=== PATIENT | male | born 1950 | race Caucasian/White ===

== ENCOUNTER 2016-06-20 05:25 | Inpatient (IN) | payer BC, OTHER ==
[2016-05-28 11:16] VITALS: BMI 28.0
--- NOTE | 2016-05-28 11:45 | PAT Medication Instructions ---
Service Date May 28, 2016. Current Home Medication List Aspirin (Aspirin Ec), 81 MG PO QAM Diltiazem HCl (Diltiazem Cd), 120 MG PO QAM Fluocinonide (Fluocinonide), 1 APPLN TOP DAILY Lamotrigine (Lamictal), 200 MG PO BID Meloxicam (Mobic), 15 MG PO QAM Quetiapine Fumarate (Seroquel), 300 MG PO QPM Simvastatin (Zocor), 40 MG PO QPM Tamsulosin Hcl (Flomax), 0.4 MG PO HS Temazepam (Restoril), 30 MG PO HS PRN for Sleep Umeclidinium-Vilanterol (Anoro Ellipta 62.5-25 Mcg/INH), 2 PUFF INH QAM Medication Instructions For Your Scheduled Surgery - Hold the following medications the morning of surgery: Fluocinonide (Fluocinonide), 1 APPLN TOP DAILY Meloxicam (Mobic), 15 MG PO QAM (otherwise okay to continue per surgeon) - Take the following medications the morning of surgery with a sip of water OTHERWISE NOTHING TO EAT OR DRINK AFTER MIDNIGHT: Lamotrigine (Lamictal), 200 MG PO BID Aspirin (Aspirin Ec), 81 MG PO QAM Diltiazem HCl (Diltiazem Cd), 120 MG PO QAM Umeclidinium-Vilanterol (Anoro Ellipta 62.5-25 Mcg/INH), 2 PUFF INH QAM - Take the following medications as scheduled the night before surgery: Quetiapine Fumarate (Seroquel), 300 MG PO QPM Simvastatin (Zocor), 40 MG PO QPM Tamsulosin Hcl (Flomax), 0.4 MG PO HS Temazepam (Restoril), 30 MG PO HS PRN for Sleep Lamotrigine (Lamictal), 200 MG PO BID If you have any questions please call us at [phone] (Katia Estrada PA-C) or [phone] or [phone]
[2016-05-28 13:13] LABS: BASO % 0.4 %; BASO ABS # 0.02 K/uL (0-0.2); COMPLETE YES; EOS % 6.8 %; HEMATOCRIT 41.9 % (42-52); LYMPH % 35.3 %; LYMPH ABS # 1.66 K/uL (1.2-3.4); MEAN CELL VOLUME 91.9 fL (80-100); MEAN CORPUSCULAR HEMOGLOBIN 31.1 pg (25-34); MEAN CORPUSCULAR HGB CONC 33.9 g/dl (32-36); MEAN PLATELET VOLUME 10.5 fL (7.4-10.4); MONO % 8.1 %; NEUT % 49.4 %; PLATELET COUNT 215 K/uL (130-400); RED BLOOD COUNT 4.56 M/uL (4.7-6.1)
[2016-05-28 13:28] LABS: ESTIMATED AVERAGE GLUCOSE 120 mg/dl; HA1C FLAG Normal (Normal); INR 0.9 (0.9-1.1)
[2016-05-28 13:40] LABS: BUN/CREATININE RATIO 21.6 (10-20); CALCIUM 8.6 mg/dl (8.5-10.1); CREATININE 1.1 mg/dl (0.60-1.40); POTASSIUM 4.2 mmol/L (3.5-5.1)
--- NOTE | 2016-05-30 08:36 | History and Physical ---
History & Physical Date May 30, 2016. Chief Complaint Right knee pain History of Present Illness Chun is a pleasant 65-year-old male who presents for preoperative evaluation prior to a right knee replacement. Patient states that they have been having pain in this knee for many years now, which has gradually worsened, it has now gotten to the point it is affecting his daily activities including walking, standing, going up and down steps. Patient has tried and failed conservative measures including previous cortisone injection, viscosupplementation, bracing, physical therapy, and PO NSAIDs, as well as previous knee arthroscopy with no relief. At this point in time, patient has failed conservative measures and would like to proceed with a right knee replacement. Past Medical/Surgical History Medical Problems: (1) Bipolar disorder (2) Bronchitis (3) Pneumonia (4) SVT (supraventricular tachycardia) Surgical Problems: (1) H/O arthroscopic knee surgery (2) H/O arthroscopic knee surgery (3) History of arthroscopic surgery of shoulder (4) History of lung surgery Additional History Hepatic Disease: No Bleeding Tendencies: No Infectious Diseases: No Allergies Coded Allergies: Tetracycline (Verified Allergy, Unknown, GROIN TURNED BLACK, 05/28/16) Home Medications Scheduled Aspirin (Aspirin Ec), 81 MG PO QAM Diltiazem HCl (Diltiazem Cd), 120 MG PO QAM Fluocinonide (Fluocinonide), 1 APPLN TOP DAILY Lamotrigine (Lamictal), 200 MG PO BID Meloxicam (Mobic), 15 MG PO QAM Quetiapine Fumarate (Seroquel), 300 MG PO QPM Simvastatin (Zocor), 40 MG PO QPM Tamsulosin Hcl (Flomax), 0.4 MG PO HS Tobramycin/Dexamethasone 0.3% Oph (Tobradex 0.3% Oph), 1 DOSE OPB DAILY Umeclidinium-Vilanterol (Anoro Ellipta 62.5-25 Mcg/INH), 2 PUFF INH QAM Scheduled PRN Hypochlorous Acid (Avenova with Neutrox), 1 DOSE OPB DAILY PRN for PRN Temazepam (Restoril), 30 MG PO HS PRN for Sleep Physical Examination Skin: warm/dry, no rash Eyes: normal inspection, EOMI, sclerae normal ENT: normal ENT inspection, pharynx normal Head: normocephalic, atraumatic Neck: supple, no adenopathy, trachea midline Respiratory/Chest: lungs clear, normal breath sounds, no respiratory distress Cardiovascular: regular rate, rhythm, no edema, no murmur Abdomen / GI: normal bowel sounds, non tender Addiitonal Comments: RIGHT KNEE EXAM Ankle ROM R * Active ROM - Factors: normal, Description: active pain free range of motion. Passive ROM - Factors: normal, Description: passive pain free range of motion. Hip ROM R * Active ROM - Factors: normal, Description: active pain free range of motion. Passive ROM - Factors: normal, Description: passive pain free range of motion. Knee ROM R * Active ROM - Flexion: 120 degrees, Extension: 5 degrees, Factors: pain. Passive ROM - Factors: normal, Description: passive pain free range of motion. Strength LE Normal Strength Description - Normal lower extremity: Bilateral. Knee * Inspection - Gait: normal. Alignment - Right: varus, Clinical. Ecchymosis - Right: negative. Effusion - Right: negative. Skin - Right: surgical scars. Swelling - Right: mild. Flexibility - Right: normal. Maximum tenderness - Right: Medial Joint Line. Patella exam - Crepitation - Right: negative. Patella position - Right: neutral. Tilt - Right: equal. [facility]'s - medial - Right: Positive. Knee Normal Inspection - Atrophy - Right: Absent. Patella exam - Apprehension - Right: Negative. Q-angle - Right: Normal. Damian's - Right: Negative. Breezy' s - lateral - Right: Negative. Posterior drawer - Right: Negative. Anterior drawer - Right: Negative. Pivot shift - Right: Negative. Valgus stress - Right: Negative. Varus stress - Right: Negative. Extensor lag - Right: Normal. Neurovascular LE Normal Neurovascular examination including reflexes, sensation , and pulses is within normal limits. Right KNEE XRAY Xrays reviewed of the right knee showing findings consistent with degenerative joint disease including joint space narrowing, subchondral sclerosis and peripheral osteophyte formation. no acute bony pathology, overall varus alignment. Impression: degenerative joint disease of the right knee with no acute bony pathology noted. Diagnosis Right Knee DJD. Medical Problems: (1) Bipolar disorder (2) Bronchitis (3) Pneumonia (4) SVT (supraventricular tachycardia) Plan of Treatment Further care discussed with patient and at this point in time has failed conservative measures and would like to proceed with a right total knee replacement. Plan on discharge will be home with outpatient physical therapy. DVT prophalaxis with TEDs, SCDs and will also place on aspirin 81 mg p.o. b.i.d. for a month postop. Patient will have follow up appointment in our office two weeks post op for staple/suture removal and re-evaluation. Patient otherwise has no other questions or concerns.
[~2016-06-20] VITALS: Ht 188 cm; Wt 98.3 kg
[2016-06-20] VITALS (8 sets, daily range): BP systolic 111–146; BP diastolic 71–96; PULSE 83–102; TEMP 36.3–36.6; O2SAT 95–98; Ht 188 cm; Wt 98.3 kg
[~2016-06-20 05:25] MED LIST: ASPI81TA28 PO; CRDCD120 PO; FLUO0.0566 TOP; HYPO0.01 OPB; LAMO200T38 PO; MELO7.5T5 PO; QUET1TAB37 PO; SIMV40TA4 PO; TAMS0.4C59 PO; TEMA30CA4 PO; TOBRSUS OPB; UMEC1AER INH
[2016-06-20] MEDS ORDERED: CEFAZOLIN 2000 MG/60 ML D5W 60 ML IV SCH (06:00)
[2016-06-20] MEDS ORDERED: FAMOTIDINE 20 MG TAB PO SCH (06:00)
[2016-06-20] MEDS ORDERED: CeleBREX 200 MG CAP PO SCH (06:00)
[2016-06-20] MEDS ORDERED: LACTATED RINGER'S 1000ML 1,000 ML IV SCH (06:00)
[2016-06-20] MEDS ORDERED: LACTATED RINGER'S 1000ML 500 ML IV ONE (06:00)
[2016-06-20] MEDS ORDERED: ACETAMINOPHEN 500 MG TAB PO SCH (06:00)
[2016-06-20] MEDS ORDERED: ROPIVACAINE 5MG/ML 30 ML 150 MG, BUPIVACAINE/EPINEPHR 0.5% MPF 30 ML, KETOROLAC TROMETH... INFIL SCH ×7 (06:00)
[2016-06-20] MEDS ORDERED: DEXAMETHASONE 4 MG TAB PO SCH (06:00)
[2016-06-20] MEDS ORDERED: GABAPENTIN 300 MG CAP PO SCH (06:00)
[2016-06-20] MEDS ORDERED: METOCLOPRAMIDE HCL 10 MG TAB PO SCH (06:00)
[2016-06-20] MEDS ORDERED: LACTATED RINGER'S 1000ML IV SCH (06:00)
[2016-06-20] MEDS ORDERED: BUPIVACAINE 0.5 % 5 MG/1 ML PF 10ML VIAL ONE (06:25)
[2016-06-20] MEDS: TRANEXAMIC ACID INJ 1,000 MG in SODIUM CHLORIDE 0.9% 100ML 100 ML IV SCH ×2 (06:30→06:33)
[2016-06-20] MEDS ORDERED: ORTHO JOINT ANESTHETIC ONE (06:52)
[2016-06-20] MEDS ORDERED: MIDAZOLAM HCL 1 MG/ML 2ML VIAL ONE (06:54)
[2016-06-20] MEDS ORDERED: FENTANYL CITRATE INJ 50 MCG/1 ML 2 ML VIAL ONE (06:55)
--- NOTE | 2016-06-20 07:07 | History & Physical Bridge Note ---
H&P Re-Evaluation Bridge Note: I have examined the patient, reviewed the History & Physical and in the interval since the performance of the History & Physical I have noted the following changes of clinical significance: No changes noted
[2016-06-20] MEDS ORDERED: FENTANYL CITRATE INJ 50 MCG/1 ML 2 ML VIAL IV PRN (07:15)
[2016-06-20] MEDS ORDERED: ATROPINE SULFATE 0.1 MG/ML 5ML SYR IV PRN (07:15)
[2016-06-20] MEDS ORDERED: EpHEDrine SULFATE INJ 50 MG/ML AMP IV PRN (07:15)
[2016-06-20] MEDS ORDERED: ONDANSETRON INJ 2 MG/ML 2 ML VIAL IV PRN ×2 (07:15→09:00)
[2016-06-20] MEDS ORDERED: LIDOCAINE HCL 2% 2 ML VIAL (20MG/ML) ONE (07:43)
[2016-06-20] MEDS ORDERED: PROPOFOL IV EMULSION 10 MG/ML 20 ML VIAL IV ONE (07:43)
--- NOTE | 2016-06-20 08:18 | [facility] Post Operative Brief Note ---
Immediate Operative Summary Operative Date Jun 20, 2016. Pre-Operative Diagnosis Right Knee Degenerative Joint Disease Post-Operative Diagnosis Right Knee Degenerative Joint Disease Procedure(s) Performed Right Total Knee Arthroplasty Cemented maryann patel [address] Boris Unger Powdered Sugar Supervisor Surgeon(s) Sukhjinder Ta PA-C Estimated Blood Loss 5ml Findings severe djd rt knee Specimens A. Right Knee Bone and Tissue Complication(s) None Disposition Recovery Room / PACU
[2016-06-20] MEDS ORDERED: BACITRACIN 50000 UNIT VIAL IR ONE (08:23)
[2016-06-20] MEDS ORDERED: POVIDONE-IODINE OP SOLN 30 ML BTL TOP ONE (08:23)
--- NOTE | 2016-06-20 08:44 | OPERATIVE REPORT ---
DATE OF OPERATION: 06/20/2016 PREOPERATIVE DIAGNOSIS: Severe end-stage tricompartmental degenerative joint disease, right knee. POSTOPERATIVE DIAGNOSIS: Same. PROCEDURE: Right total knee arthroplasty utilizing Journey II Day \T\ Nephew patient matched block total knee arthroplasty size 8 femur, 7 tibia, 10 poly, 35 oval patella. SURGEON: Dr. Unger. MEDICAL OFFICE ADMINISTRATOR: Sukhjinder Ta PA-C who was necessary for prepping, draping, retraction, wound closure of deep fascia, subcutaneous and skin and was necessary for the case. ESTIMATED BLOOD LOSS: 5 mL. COMPLICATIONS: None. TOURNIQUET TIME: 45 minutes. HISTORY OF PRESENT ILLNESS: The patient presents as a very pleasant 65-year-old white male being seen and evaluated with complaints of ongoing pain attributed to his right knee. He has been nonresponsive to conservative therapy including physical therapy, anti-inflammatories, corticosteroid injections, viscosupplementations and presents after a thorough discussion regarding risks, complications of total joint arthroplasty for right total knee arthroplasty. OPERATION AND FINDINGS: PROCEDURE: The patient was properly prepped and draped in supine position for total knee arthroplasty after identifying the appropriate surgical site. An anterior midline incision was made through the subcutaneous tissues down to the region of the extensor mechanism. A medial parapatellar incision was subsequently made. Meticulous hemostasis was obtained and performed at all times. The patella having been subluxed lateralward, medial and lateral meniscal remnants were excised. The patellar cut was then initially made and was sized to the appropriate size. After subluxing the tibia forward the appropriate meniscal fragments having been removed the distal femur was then cut first utilizing a Day \T\ Nephew block. The distal femoral cuts and chamfer cuts were all made under direct visualization and the proximal tibial osteotomy cut was also made utilizing Day \T\ Nephew blocks and checked with an extramedullary guide. The appropriate trial components on the femur and tibia were placed. Appropriate trial spacers were used to check flexion and extension gaps. With flexion and extension gaps being equal, the components were then subsequently after thorough irrigation and debridement lavage components were then subsequently cemented in the following order: femur, tibia and patella. Exparel was used for intraoperative anesthesia, the medial parapatellar incision was closed utilizing #1 Vicryl, subQ was closed with 2-0 Vicryl, skin was closed with skin clips. A sterile compression dressing was placed. The patient was taken to recovery room in stable condition. Due to the complex nature of the procedure, the entire surgery was performed with the operational assistance of Sukhjinder Ta PA-C. The delinquent tax collector assistant, under direct supervision, was involved in the actual performance of all aspects of the surgical procedure including hemostasis, tissue retraction and incision, instrument management, patient positioning, and wound closure. I attest to the content of the Intraoperative Record and any orders documented therein. Any exceptio ns are noted below.
[2016-06-20] MEDS: PANTOprazole SOD 40 MG TAB PO SCH (09:00)
[2016-06-20] MEDS: OXYCODONE HCL 10 MG TABCR (OXYCONTIN) PO SCH ×2 (09:00→21:31)
[2016-06-20] MEDS ORDERED: KETOROLAC TROMETHAMINE 30 MG/ML VIAL IV. PRN (09:00)
[2016-06-20] MEDS: ASPIRIN 81 MG ECTAB PO SCH ×2 (09:00→21:26)
[2016-06-20] MEDS: FLUOCINONIDE 0.05% OINT 15 GM TUBE EXT SCH (09:00)
[2016-06-20] MEDS ORDERED: TEMAZEPAM 15 MG CAP PO PRN (09:00)
[2016-06-20] MEDS ORDERED: ALUMINUM/MAGNESIUM/SIMETH (MAALOX MAX) 30 ML UDC PO PRN (09:00)
[2016-06-20] MEDS: DILTIAZEM HCL 120 MG CAPCR PO SCH (09:00)
[2016-06-20] MEDS ORDERED: SOD PHOSPHATE/SOD BIPHOSPHATE ENEMA 132 ML BTL PR PRN (09:00)
[2016-06-20] MEDS: DOCUSATE SODIUM 100 MG CAP PO SCH ×2 (09:00→21:26)
[2016-06-20] MEDS ORDERED: BISACODYL 10 MG SUPP PR PRN (09:00)
[2016-06-20] MEDS ORDERED: MoRPHine SULFATE 2 MG/ML CARP IV PRN ×2 (09:00→11:15)
[2016-06-20] MEDS ORDERED: MAGNESIUM HYDROXIDE SUSP 30 ML UDC PO PRN (09:00)
[2016-06-20] MEDS ORDERED: TOBRAMYCIN/DEXAMETHASONE OPH SUSP 2.5 ML BTL OPB SCH (09:00)
[2016-06-20] MEDS: MULTIVITAMIN TAB PO SCH (09:00)
--- NOTE | 2016-06-20 10:10 | DIAGNOSTIC IMAGING REPORT ---
RIGHT KNEE 1 OR 2 VIEWS ROUTINE CLINICAL HISTORY: AP/LATERAL IN PACU RIGHT KNEE Right postoperative evaluation COMPARISON: None. DISCUSSION: Total right knee replacement. Good contact between prosthetic and underlying bone. Surgical drains are in position. Expected soft tissue postoperative change IMPRESSION: Anatomic alignment status post total right knee replacement Electronically signed by: Sukhjinder Rangel M.D. 06/20/2016 10:08 AM Dictated Date/Time: 06/20/2016 10:08 AM
--- NOTE | 2016-06-20 10:47 | Anesthesiology Progress Note ---
Anesthesia Post Op Note Date & Time Jun 20, 2016 at 10:46 Vital Signs Pain Intensity: 0 Vital Signs Past 12 Hours Date Time Temp Pulse Resp B/P Pulse Ox O2 Delivery O2 Flow Rate FiO2 06/20/16 10:05 78 23 119/81 98 Nasal Cannula 2 06/20/16 09:55 36.4 76 23 117/79 98 Nasal Cannula 2 06/20/16 09:45 78 23 118/78 98 Nasal Cannula 2 06/20/16 09:35 80 18 118/79 99 Nasal Cannula 2 06/20/16 09:25 77 21 118/77 99 Nasal Cannula 2 06/20/16 09:15 80 23 117/81 99 Mask 10 06/20/16 09:05 79 23 118/75 100 Mask 10 06/20/16 08:57 36.0 87 20 118/76 97 Mask 10 06/20/16 05:59 36.3 94 20 134/96 97 Room Air 06/20/16 05:59 97 Room Air Notes Mental Status: alert / awake / arousable, participated in evaluation Pt Amnestic to Procedure: Yes Nausea / Vomiting: adequately controlled Pain: adequately controlled Airway Patency, RR, SpO2: stable & adequate BP & HR: stable & adequate Hydration State: stable & adequate Neuraxial Anesthesia: was administered, sensory block is resolving Anesthetic Complications: no major complications apparent
[2016-06-20] MEDS ORDERED: MoRPHine SULFATE 10 MG/ML CARP/VIAL IV PRN (11:15)
[2016-06-20] MEDS ORDERED: MoRPHine SULFATE 4 MG/ML 1 ML CARP\\VIAL IV PRN (11:15)
[2016-06-20] MEDS: VILANTEROL SCH (11:31)
[2016-06-20] MEDS: UMECLIDINIUM SCH (11:31)
[2016-06-20] MEDS: D5W AND 1/2NSS + 20MEQ KCL 1,000 ML IV SCH ×2 (11:33→21:25)
[2016-06-20] MEDS: CEFAZOLIN IV 2,000 MG in DEXTROSE 5% 50ML 50 ML IV SCH ×3 (11:41→21:27)
[2016-06-20] MEDS ORDERED: EYE SCH (12:00)
[2016-06-20] MEDS ORDERED: [UNRECOGNIZED DRUG - OTHER] SCH (12:00)
[2016-06-20] MEDS ORDERED: INFLUENZA VIRUS QUAD VACCINE 0.5 ML SYR IM. ONE (13:00)
[2016-06-20] MEDS ORDERED: INFLUENZA ADMINISTRATION CHARGE ONE (13:00)
[2016-06-20] MEDS: ACETAMINOPHEN 500 MG TAB PO SCH ×2 (13:32→21:27)
[2016-06-20] MEDS: OXYCODONE HCL IR 5 MG TAB (IMMEDIATE RELEASE) PO PRN ×2 (15:25→19:57)
[2016-06-20] MEDS ORDERED: AVENOVA OP PRN (16:30)
[2016-06-20] MEDS: SENNA 8.6 MG TAB PO SCH (21:25)
[2016-06-20] MEDS: SIMVASTATIN 40 MG TAB PO SCH (21:25)
[2016-06-20] MEDS: TAMSULOSIN HCL 0.4 MG CAP PO SCH (21:26)
[2016-06-20] MEDS: TOBRAMYCIN/DEXAMETHASONE OPH SUSP 2.5 ML BTL OPB SCH (21:26)
[2016-06-20] MEDS: QUETIAPINE FUMARATE 300 MG TAB PO SCH (22:41)
[2016-06-21 03:31] VITALS: BP 124/76; PULSE 90; TEMP 36.4; O2SAT 97
[2016-06-21] MEDS: ACETAMINOPHEN 500 MG TAB PO SCH ×3 (06:04→21:41)
[2016-06-21] MEDS: OXYCODONE HCL IR 5 MG TAB (IMMEDIATE RELEASE) PO PRN ×3 (06:05→18:32)
[2016-06-21] MEDS: D5W AND 1/2NSS + 20MEQ KCL 1,000 ML IV SCH (06:36)
[2016-06-21 06:52] VITALS: BP 121/74; PULSE 93; TEMP 36.7; O2SAT 94
[2016-06-21 06:53] LABS: HEMATOCRIT 35.6 % (42-52); MEAN CELL VOLUME 90.8 fL (80-100); MEAN CORPUSCULAR HEMOGLOBIN 30.9 pg (25-34); MEAN PLATELET VOLUME 9.9 fL (7.4-10.4); PLATELET COUNT 205 K/uL (130-400); RED BLOOD COUNT 3.92 M/uL (4.7-6.1); WHITE BLOOD COUNT 10.36 K/uL (4.8-10.8)
--- NOTE | 2016-06-21 07:00 | Orthopedic Progress Note ---
Orthopedic Progress Note Date of Service Jun 21, 2016. Subjective Post OP Day: 1 (s/p Right TKA) Reports: feeling well, pain controlled w PO medications, Denies: SOB, calf pain , chest pain, complaints, light headedness, nausea / vomiting Objective calves soft nontender, N/V intact, capillary refill less than 2 sec., A&O x3, toes mobile, hemovac drainage (100cc/8 hours) weak with dorsiflexion, states improved since last evening Date Time Temp Pulse Resp B/P Pulse Ox O2 Delivery O2 Flow Rate FiO2 06/21/16 06:52 36.7 93 19 121/74 94 Room Air 06/21/16 03:31 36.4 90 17 124/76 97 Room Air 06/21/16 03:30 Room Air 06/20/16 23:08 36.4 88 18 146/83 96 Room Air 06/20/16 15:43 36.4 100 18 143/84 96 Nasal Cannula 2.0 06/20/16 15:20 Nasal Cannula 2.0 06/20/16 13:22 36.6 102 17 111/71 97 Nasal Cannula 2.0 06/20/16 12:34 36.4 99 19 133/80 97 Nasal Cannula 2.0 06/20/16 11:32 36.3 95 17 116/75 98 Nasal Cannula 2.0 06/20/16 11:00 36.3 87 17 122/77 98 Nasal Cannula 2.0 06/20/16 10:30 Nasal Cannula 2.0 95 06/20/16 10:30 36.5 83 14 126/82 95 Nasal Cannula 2.0 06/20/16 10:30 98 Nasal Cannula 2.0 06/20/16 10:05 78 23 119/81 98 Nasal Cannula 2 06/20/16 09:55 36.4 76 23 117/79 98 Nasal Cannula 2 06/20/16 09:45 78 23 118/78 98 Nasal Cannula 2 06/20/16 09:35 80 18 118/79 99 Nasal Cannula 2 06/20/16 09:25 77 21 118/77 99 Nasal Cannula 2 06/20/16 09:15 80 23 117/81 99 Mask 10 06/20/16 09:05 79 23 118/75 100 Mask 10 06/20/16 08:57 36.0 87 20 118/76 97 Mask 10 Laboratory Results 24 Hours: Test 06/21/16 06:30 Hematocrit 35.6 % Hemoglobin 12.1 g/dL Assessment & Plan Assessment: POD #1 s/p Right TKA -PT/OT -dvt proph with KENDALL/SCD/ASA -plan for d/c home with HHPT when stable -mild foot drop, states improving since last evening, able to partially resist dorsiflexion, will observe, likely from ortho joint mix. (1) Bipolar disorder (2) Bronchitis (3) Pneumonia (4) SVT (supraventricular tachycardia) Discharge Planning Discharge Planning: home with home health DVT Prophylaxis: TEDs, SCDs Therapy: Physical Therapy
[2016-06-21 07:05] LABS: PROTHROMBIN TIME (PATIENT) 10.4 SECONDS (9.0-12.0)
[2016-06-21] MEDS: VILANTEROL SCH ×3 (07:06→15:09)
[2016-06-21] MEDS: UMECLIDINIUM SCH ×3 (07:06→15:09)
--- NOTE | 2016-06-21 07:20 | Discharge Instructions ---
Discharge Instructions Admission Reason for Admission: Right Knee Osteoarthritis Discharge Discharge Diagnosis / Problem: s/p Right TKA Discharge Goals Goal(s): Decrease discomfort, Improve function, Increase independence Activity Recommendations Activity Limitations: as noted below Weightbearing Status: Right weightbearing (as tolerated) . Instructions / Follow-Up Instructions / Follow-Up ACTIVITY RECOMMENDATIONS: SELF CARE INSTRUCTIONS AFTER TOTAL KNEE REPLACEMENT A. You may need to continue a physical therapy program after discharge from the hospital. There are several options available to you. Your doctor will assist you in selecting the best one for you. 1. An out-patient facility 2 to 3 times a week for therapy or home therapy. 2. Continue working on all exercises taught to you in the hospital. Your goals should be to increase bending of your knee to 90 degrees and beyond and to fully straighten your knee. B. You may progress at your own pace from walking with a walker or crutches to a cane; then to no assistive devices. C. Make walking a part of your daily routine. Be up as much as comfortable with rest periods throughout the day. Rest with leg elevation is very important. Use the ice wrap frequently for the first 3-4 weeks. D. There are no restrictions on activities. You may ride in a car, shop, participate in light air defense artillery crewmember and all social activities. E. Wear the long elastic stockings (KENDALL hose) 20 hours a day for 2 weeks after surgery. They can be removed several times a day for laundering and for a bath. F. You may shower, no tub baths until cleared by your doctor. SPECIAL CARE INSTRUCTIONS: VERY IMPORTANT TO READ AND REVIEW A. There are a few signs you need to watch for after you are home. Call [facility] if you notice any of the followin. Increased severe knee pain. Some pain is expected especially when you exercise. 2. Increased swelling in your leg or knee; pain or swelling of the calf muscle in either lower leg. 3. Any fluid drainage from the incision. 4. Shortness of breath or chest pain. B. Please call [facility] at if you have any concerns or questions about your operation or recovery. The doctor or his nurse will return your call promptly. C. You must take antibiotics before dental work, bladder, bowel or other surgery. Your doctor will provide you with a permanent care to carry describing this precaution. IMPORTANT: * REMEMBER TO TAKE ASPIRIN, 81 MG, TWICE DAILY FOR 4 WEEKS UNLESS OTHERWISE DIRECTED. THIS IS YOUR BLOOD THINNER. * HIGH RISK PATIENTS MAY BE PRESCRIBED A STRONGER BLOOD THINNER. THIS WILL BE PROVIDED AT DISCHARGE. * CALL IF INCREASED PAIN, REDNESS, DRAINAGE OR FEVER GREATER THAT 101. * WEAR KENDALL HOSE 20 HOURS PER DAY FOR 2 WEEKS. * DERMABOND Prineo- This is a mesh tape dressing that is covered with glue. It should remain in place until the incision is properly healed, usually 10-14 days. This dressing is designed to naturally slough off. You may trim the excess mesh tape as it peels off. Incision may be briefly wet in a shower. Dry immediately by blotting with a clean, dry towel. Do not bath or swim until instructed by your doctor. Do not scratch, rub, or pick at the dressing. Do not apply any topical ointments or lotions until dressing is completely removed and/or instructed by your doctor. There may be a small piece of suture material at one end of your incision. Do not pull or trim this. If it is bothersome or catching on clothing, you may cover it with a band-aid. FOLLOW UP VISIT: If appointment is not already scheduled: Please call [facility] to make a follow-up appointment for 2 weeks after your surgery at . Current Hospital Diet Patient's current hospital diet: Regular Diet Discharge Diet Recommended Diet: Regular Diet Procedures Procedures Performed: Right Total Knee Arthroplasty Cemented wolf nephfranci patel 2 Pending Studies Studies pending at discharge: no Laboratory Results Hemoglobin A1c Test 05/28/16 11:57 Range/Units Estimated Average Glucose 120 mg/dl Hemoglobin A1c 5.8 H 4.5-5.6 % Medical Emergencies . Who to Call and When: Medical Emergencies: If at any time you feel your situation is an emergency, please call 911 immediately. . Non-Emergent Contact Non-Emergency issues call your: Primary Care Provider, Surgeon . "Provider Documentation" section prepared by Sukhjinder Ta. VTE Core Measure Inpt VTE Proph given/why not?: Other Anticoagulation (ASA 81mg po bid x 1 month ), T.E.D. Stockings, SCD's
[2016-06-21 07:21] LABS: BUN/CREATININE RATIO 19.7 (10-20); CALCIUM 7.8 mg/dl (8.5-10.1); POTASSIUM 3.9 mmol/L (3.5-5.1)
[2016-06-21] MEDS: FLUOCINONIDE 0.05% OINT 15 GM TUBE EXT SCH (07:58)
[2016-06-21] MEDS: DILTIAZEM HCL 120 MG CAPCR PO SCH (08:01)
[2016-06-21] MEDS: OXYCODONE HCL 10 MG TABCR (OXYCONTIN) PO SCH ×2 (08:01→21:01)
[2016-06-21] MEDS: DOCUSATE SODIUM 100 MG CAP PO SCH ×2 (08:02→21:00)
[2016-06-21] MEDS: ASPIRIN 81 MG ECTAB PO SCH ×2 (08:02→21:00)
[2016-06-21] MEDS: PANTOprazole SOD 40 MG TAB PO SCH (08:02)
[2016-06-21] MEDS: MULTIVITAMIN TAB PO SCH (08:02)
--- NOTE | 2016-06-21 09:56 | Anesthesiology Progress Note ---
Anesthesia Post Op Note Date & Time Jun 21, 2016 at 09:56 Vital Signs Pain Intensity: 5.0 Vital Signs Past 12 Hours Date Time Temp Pulse Resp B/P Pulse Ox O2 Delivery O2 Flow Rate FiO2 06/21/16 06:52 36.7 93 19 121/74 94 Room Air 06/21/16 03:31 36.4 90 17 124/76 97 Room Air 06/21/16 03:30 Room Air 06/20/16 23:08 36.4 88 18 146/83 96 Room Air Notes Mental Status: alert / awake / arousable, participated in evaluation Pt Amnestic to Procedure: Yes Nausea / Vomiting: adequately controlled Pain: adequately controlled Airway Patency, RR, SpO2: stable & adequate BP & HR: stable & adequate Hydration State: stable & adequate Neuraxial Anesthesia: sensory block resolved Anesthetic Complications: no major complications apparent
[2016-06-21 10:51] VITALS: BP 128/77; PULSE 80; TEMP 36.3; O2SAT 95
[2016-06-21 14:53] VITALS: BP 129/75; PULSE 84; TEMP 36.7; O2SAT 93
[2016-06-21] MEDS: SIMVASTATIN 40 MG TAB PO SCH (20:59)
[2016-06-21] MEDS: QUETIAPINE FUMARATE 300 MG TAB PO SCH (21:00)
[2016-06-21] MEDS: TAMSULOSIN HCL 0.4 MG CAP PO SCH (21:00)
[2016-06-21] MEDS: SENNA 8.6 MG TAB PO SCH (21:00)
[2016-06-21] MEDS: CeleBREX 200 MG CAP PO SCH (21:01)
[2016-06-21] MEDS: TOBRAMYCIN/DEXAMETHASONE OPH SUSP 2.5 ML BTL OPB SCH (21:02)
[2016-06-21 23:15] VITALS: BP 157/87; PULSE 92; TEMP 36.8; O2SAT 93
[2016-06-22] MEDS: OXYCODONE HCL IR 5 MG TAB (IMMEDIATE RELEASE) PO PRN ×3 (00:36→12:12)
[2016-06-22] MEDS: ACETAMINOPHEN 500 MG TAB PO SCH (05:36)
[2016-06-22 06:42] VITALS: BP 127/76; PULSE 94; TEMP 36.7; O2SAT 95
--- NOTE | 2016-06-22 07:01 | Orthopedic Progress Note ---
Orthopedic Progress Note Date of Service Jun 22, 2016. Subjective Post OP Day: 2 Reports: feeling well, pain controlled w PO medications, Denies: SOB, calf pain , chest pain, complaints, light headedness, nausea / vomiting Objective calves soft nontender, N/V intact, capillary refill less than 2 sec., incision C /D/I, A&O x3, toes mobile Date Time Temp Pulse Resp B/P Pulse Ox O2 Delivery O2 Flow Rate FiO2 06/22/16 06:42 36.7 94 16 127/76 95 Room Air 06/22/16 00:30 Room Air 06/21/16 23:15 36.8 92 18 157/87 93 Room Air 06/21/16 16:00 Room Air 06/21/16 14:53 36.7 84 16 129/75 93 Room Air 06/21/16 10:51 36.3 80 19 128/77 95 Room Air Assessment & Plan Assessment: POD #2 s/p Right TKA -PT/OT -dvt proph with KENDALL/SCD/ASA -plan for d/c home with HHPT when stable -mild foot drop, states improving since last evening, able to partially resist dorsiflexion, will observe, likely from ortho joint mix. -has resolved, was likely due to orthomix (1) Bipolar disorder (2) Bronchitis (3) Pneumonia (4) SVT (supraventricular tachycardia) Discharge Planning Discharge Planning: home with home health DVT Prophylaxis: TEDs, SCDs Therapy: Physical Therapy
[2016-06-22] MEDS: UMECLIDINIUM SCH ×2 (07:05)
[2016-06-22] MEDS: VILANTEROL SCH ×2 (07:05)
[2016-06-22] MEDS ORDERED: ACET-1138 PO (07:10)
[2016-06-22] MEDS ORDERED: RXC5 PO (07:10)
[2016-06-22] MEDS ORDERED: CLB200 PO (07:10)
[2016-06-22] MEDS ORDERED: OXYSR10 PO (07:10)
[2016-06-22] MEDS ORDERED: ONDA8TAB6 PO (07:10)
[2016-06-22] MEDS ORDERED: ASPEC81 PO (07:10)
--- NOTE | 2016-06-22 07:15 | Discharge Summary ---
Orthopedic Discharge Summary Admission Date/Reason Jun 20, 2016 at 07:00 Right Knee Osteoarthritis. Discharge Date/Disposition Jun 22, 2016 Home with services Diagnosis Principal Diagnosis: s/p Right TKA Secondary Diagnoses/Problems: (1) Bipolar disorder (2) Bronchitis (3) Pneumonia (4) SVT (supraventricular tachycardia) Procedure(s) Performed Right TKA Consultations NONE Medication Reconciliation New Medications: Ondansetron Hcl (Zofran) 8 Mg Tab 8 MG PO Q8 PRN for Nausea, #20 TAB Acetaminophen (Tylenol Extra Strength) 500 Mg Tab 1000 MG PO Q8H, #126 TAB Aspirin (Aspirin EC Low Dose) 81 Mg Ectab 81 MG PO BID for 30 Days Celecoxib (Celebrex) 200 Mg Cap 200 MG PO BID, #60 CAP Oxycodone HCl (Oxycodone HCl) 5 Mg Tab 5-10 MG PO Q4H PRN for Pain, #60 TAB Oxycodone HCl (Oxycontin) 10 Mg Tabcr 10 MG PO Q12, #20 Continued Medications: Diltiazem HCl (Diltiazem Cd) 120 Mg Capcr 120 MG PO QAM Fluocinonide (Fluocinonide) 0.05 % Noemí 1 APPLN TOP DAILY, ML 2 Refills Hypochlorous Acid (Avenova with Neutrox) 0.01 % Noemí 1 DOSE OPB DAILY PRN for PRN Lamotrigine (Lamictal) 200 Mg Tab 200 MG PO BID Quetiapine Fumarate (Seroquel) 300 Mg Tab 300 MG PO QPM, TAB Simvastatin (Zocor) 40 Mg Tab 40 MG PO QPM, TAB Tamsulosin Hcl (Flomax) 0.4 Mg Cap 0.4 MG PO HS, CAP Temazepam (Restoril) 30 Mg Cap 30 MG PO HS PRN for Sleep Tobramycin/Dexamethasone 0.3% Oph (Tobradex 0.3% Oph) Susp 1 DOSE OPB DAILY Umeclidinium-Vilanterol (Anoro Ellipta 62.5-25 Mcg/INH) 1 Aer Aer 2 PUFF INH QAM Discontinued Medications: Aspirin (Aspirin Ec) 81 Mg Tab 81 MG PO QAM Meloxicam (Mobic) 7.5 Mg Tab 15 MG PO QAM, TAB Admission Physical Exam As per Admitting History & Physical. Hospital Course Patient was a same day admission after undergoing a successful right TKA. he tolerated the procedure well. Post-operatively, his activity was progressed and well tolerated. Please refer to daily progress notes and PT notes for complete details. After exam on 06/22/16, patient felt to be stable for discharge home with home PT. Patient will f/u in the office in 2 weeks for further evaluation including x-rays and incision check, sooner if having any issues or concerns. Below are pertinent labs/studies during their hospital stay: Last Resulted CBC 06/21/16 06:30 Last Resulted BMP 06/21/16 06:30 Last Vital Signs Documentation Date Time Temp Pulse Resp B/P Pulse Ox O2 Delivery O2 Flow Rate FiO2 06/22/16 06:42 36.7 94 16 127/76 95 Room Air 06/20/16 15:43 2.0 06/20/16 10:30 95 Discharge Instructions ACTIVITY RECOMMENDATIONS: SELF CARE INSTRUCTIONS AFTER TOTAL KNEE REPLACEMENT A. You may need to continue a physical therapy program after discharge from the hospital. There are several options available to you. Your doctor will assist you in selecting the best one for you. 1. An out-patient facility 2 to 3 times a week for therapy or home therapy. 2. Continue working on all exercises taught to you in the hospital. Your goals should be to increase bending of your knee to 90 degrees and beyond and to fully straighten your knee. B. You may progress at your own pace from walking with a walker or crutches to a cane; then to no assistive devices. C. Make walking a part of your daily routine. Be up as much as comfortable with rest periods throughout the day. Rest with leg elevation is very important. Use the ice wrap frequently for the first 3-4 weeks. D. There are no restrictions on activities. You may ride in a car, shop, participate in hospice care sales consultant and all social activities. E. Wear the long elastic stockings (KENDALL hose) 20 hours a day for 2 weeks after surgery. They can be removed several times a day for laundering and for a bath. F. You may shower, no tub baths until cleared by your doctor. SPECIAL CARE INSTRUCTIONS: VERY IMPORTANT TO READ AND REVIEW A. There are a few signs you need to watch for after you are home. Call [facility] if you notice any of the followin. Increased severe knee pain. Some pain is expected especially when you exercise. 2. Increased swelling in your leg or knee; pain or swelling of the calf muscle in either lower leg. 3. Any fluid drainage from the incision. 4. Shortness of breath or chest pain. B. Please call [facility] at if you have any concerns or questions about your operation or recovery. The doctor or his nurse will return your call promptly. C. You must take antibiotics before dental work, bladder, bowel or other surgery. Your doctor will provide you with a permanent care to carry describing this precaution. IMPORTANT: * REMEMBER TO TAKE ASPIRIN, 81 MG, TWICE DAILY FOR 4 WEEKS UNLESS OTHERWISE DIRECTED. THIS IS YOUR BLOOD THINNER. * HIGH RISK PATIENTS MAY BE PRESCRIBED A STRONGER BLOOD THINNER. THIS WILL BE PROVIDED AT DISCHARGE. * CALL IF INCREASED PAIN, REDNESS, DRAINAGE OR FEVER GREATER THAT 101. * WEAR KENDALL HOSE 20 HOURS PER DAY FOR 2 WEEKS. * DERMABOND Prineo- This is a mesh tape dressing that is covered with glue. It should remain in place until the incision is properly healed, usually 10-14 days. This dressing is designed to naturally slough off. You may trim the excess mesh tape as it peels off. Incision may be briefly wet in a shower. Dry immediately by blotting with a clean, dry towel. Do not bath or swim until instructed by your doctor. Do not scratch, rub, or pick at the dressing. Do not apply any topical ointments or lotions until dressing is completely removed and/or instructed by your doctor. There may be a small piece of suture material at one end of your incision. Do not pull or trim this. If it is bothersome or catching on clothing, you may cover it with a band-aid. FOLLOW UP VISIT: If appointment is not already scheduled: Please call [facility] to make a follow-up appointment for 2 weeks after your surgery at .
[2016-06-22] MEDS: FLUOCINONIDE 0.05% OINT 15 GM TUBE EXT SCH (07:18)
[2016-06-22] MEDS: MULTIVITAMIN TAB PO SCH (07:19)
[2016-06-22] MEDS: DOCUSATE SODIUM 100 MG CAP PO SCH (07:20)
[2016-06-22] MEDS: ASPIRIN 81 MG ECTAB PO SCH (07:20)
[2016-06-22] MEDS: DILTIAZEM HCL 120 MG CAPCR PO SCH (07:20)
[2016-06-22] MEDS: CeleBREX 200 MG CAP PO SCH (07:20)
[2016-06-22] MEDS: PANTOprazole SOD 40 MG TAB PO SCH (07:20)
[2016-06-22] MEDS: OXYCODONE HCL 10 MG TABCR (OXYCONTIN) PO SCH (07:21)
[2016-06-22 08:05] VITALS: BP 98/72; PULSE 96; TEMP 36.8; O2SAT 92
[2016-06-22 09:16] VITALS: O2SAT 92
[2016-06-22 09:25] VITALS: BP 98/72; PULSE 96; TEMP 36.8; O2SAT 92
== END 2016-06-22 13:08 | disposition home health service (06) | DRG 470 ==
LOC: ENRESERVDT → ENRESERVTM → C.ACU 05:25 → C.3E 07:00
PROVIDERS: ADMIT Orthopaedic Surgery; ATTEND Orthopaedic Surgery
PROC: 0SRC0J9 Replacement of Right Knee Joint with Synthetic Substitute, Cemented, Open Approach (ICD-10-PCS; principal; 2016-06-20 07:15)
DX: M17.11 Unilateral primary osteoarthritis, right knee (principal); M96.89 Other intraoperative and postprocedural complications and disorders of the musculoskeletal system; M21.371 Foot drop, right foot; Y84.8 Other medical procedures as the cause of abnormal reaction of the patient, or of later complication, without mention of misadventure at the time of the procedure; Y92.234 Operating room of hospital as the place of occurrence of the external cause; F31.9 Bipolar disorder, unspecified; J44.9 Chronic obstructive pulmonary disease, unspecified; E78.5 Hyperlipidemia, unspecified; N40.0 Benign prostatic hyperplasia without lower urinary tract symptoms; Z87.891 Personal history of nicotine dependence; Z90.2 Acquired absence of lung [part of]; Z79.1 Long term (current) use of non-steroidal anti-inflammatories (NSAID); Z79.51 Long term (current) use of inhaled steroids; Z79.82 Long term (current) use of aspirin; Z79.899 Other long term (current) drug therapy

== ENCOUNTER → 2016-08-28 | Outpatient (CLI) | payer BC ==
[~2016-08-28] MED LIST changes: +ACET-1138 PO; +ASPEC81 PO; -ASPI81TA28 PO; +CLB200 PO; -CRDCD120 PO; +DILT120C50 PO; -MELO7.5T5 PO; +ONDA8TAB6 PO; +OXYSR10 PO; +RXC5 PO
[2016-08-28 15:32] LABS: ALT/SGPT 38 U/L (12-78); BLOOD UREA NITROGEN 22 mg/dl (7-18); CALCIUM 8.9 mg/dl (8.5-10.1); CARBON DIOXIDE 26 mmol/L (21-32); CHLORIDE 110 mmol/L (98-107); CHOLESTEROL 195 mg/dl (0-200); CREATININE 0.96 mg/dl (0.60-1.40); GLUCOSE 107 mg/dl (70-99); SODIUM 143 mmol/L (136-145)
[2016-08-28 15:35] LABS: CHOLESTEROL/HDL RATIO 2.4; HDL CHOLESTEROL 80 mg/dl; LDL CHOLESTEROL CALCULATED 99 mg/dl; TRIGLYCERIDES 81 mg/dl (0-150); VERY LOW DENSITY LIPOPROT CALC 16 mg/dl
[2016-08-29 06:14] LABS: ESTIMATED AVERAGE GLUCOSE 108 mg/dl; HA1C FLAG Normal (Normal)
== END | disposition home or self-care (01) ==
LOC: C.LAB1850 13:12
PROVIDERS: ATTEND Family Medicine
DX: J44.9 Chronic obstructive pulmonary disease, unspecified (principal); R73.03 Prediabetes

== ENCOUNTER → 2017-06-18 | Outpatient (CLI) | payer BC ==
[~2017-06-18] MED LIST changes: +DILT-202 PO; -DILT120C50 PO; -HYPO0.01 OPB; +LAMO200T35 PO; -LAMO200T38 PO; -ONDA8TAB6 PO; +[UNRECOGNIZED DRUG - CODE] OPB
[2017-06-18 09:45] LABS: HEMOGLOBIN A1C 5.7 % (4.5-5.6)
[2017-06-18 10:08] LABS: ALT/SGPT 37 U/L (12-78); BLOOD UREA NITROGEN 21 mg/dl (7-18); CALCIUM 8.4 mg/dl (8.5-10.1); CARBON DIOXIDE 26 mmol/L (21-32); CREATININE 1.08 mg/dl (0.60-1.40); GLUCOSE 98 mg/dl (70-99); POTASSIUM 3.9 mmol/L (3.5-5.1); SODIUM 137 mmol/L (136-145)
[2017-06-18 10:11] LABS: CHOLESTEROL 178 mg/dl (0-200); LDL CHOLESTEROL CALCULATED 84 mg/dl
== END | disposition home or self-care (01) ==
LOC: C.LAB1850 08:26
PROVIDERS: ATTEND Registered Nurse Psychiatric/Mental Health
DX: Z51.81 Encounter for therapeutic drug level monitoring (principal); E78.5 Hyperlipidemia, unspecified; I47.1 Supraventricular tachycardia; R73.03 Prediabetes

== ENCOUNTER → 2017-08-01 | Day surgery (SDC) | payer BC ==
[2017-07-29 15:26] VITALS: Ht 188 cm; Wt 95.5 kg
[~2017-08-01] VITALS: Ht 188 cm; Wt 95.5 kg
[~2017-08-01] MED LIST changes: -ACET-1138 PO; +ACET-1256 PO; -ASPEC81 PO; +ASPI81TA28 PO; +CLB/200 PO; -CLB200 PO; +COEN100C3 PO; +LIDOCAINE HCL 2% 2 ML VIAL (20MG/ML) ONE; -OXYSR10 PO; +PROPOFOL IV EMULSION 10 MG/ML 20 ML VIAL IV ONE; -RXC5 PO; +SODIUM CHLORIDE 0.9% 500ML 500 ML IV ONE; +TAMS0.4C38 PO; -TAMS0.4C59 PO; -TOBRSUS OPB; +VNTHFA/IN INH; -[UNRECOGNIZED DRUG - CODE] OPB
--- NOTE | 2017-08-01 12:43 | Endo History and Physical ---
History & Physical Date of Service: Aug 01, 2017. Chief Complaint: Screening Referring Physician: Codie Biggs History of Present Illness screening Past Medical History Cancer Past Surgical History Hx Cardiac Surgery: Yes (CARDIOVERSION) Hx Internal Defibrillator: No Hx Pacemaker: No Hx Abdominal Surgery: No Hx of Implantable Prosthesis: No Hx Post-Op Nausea and Vomiting: No Hx Cancer Surgery: Yes (BCC EXCISIONS) Hx Thoracic Surgery: Yes (LOWER RT LOBE SCAR TISSUE EXCISION) Hx Orthopedic: Yes (RT TKA, LT/RT KNEE SCOPE, LT/RT RCR) Hx Urinary Tract Surgery: No Family History None Social History Smoking Status: Former Smoker Hx Substance Use: No Hx Alcohol Use: Yes (~1 BEER/DAY) Allergies Coded Allergies: Tetracycline (Verified Allergy, Unknown, GROIN TURNED BLACK, 07/29/17) Current Medications Reported Home Medications Medications Dose Route/Sig Max Daily Dose Days Date Category Co Q-10 (Coenzyme Q10 (Ubidecarenone)) 100 Mg Cap 1 Cap PO DAILY 07/29/17 Reported Ventolin Hfa (Albuterol) 200 Puffs/94555 Mcg Aers 2-4 Puffs INH Q6H PRN 07/29/17 Reported Flomax (Tamsulosin Hcl) 0.4 Mg Cap 0.4 Mg PO HS 07/29/17 Reported CeleBREX (Celecoxib) 200 Mg Cap 200 Mg PO DAILY 07/29/17 Reported Aspirin Ec (Aspirin) 81 Mg Tab 81 Mg PO QAM 07/29/17 Reported Tylenol (Acetaminophen) 500 Mg Tab 1-2 Tab PO Q6H PRN 07/29/17 Reported Anoro Ellipta 62.5-25 Mcg/INH (Umeclidinium-Vilanterol) 1 Aer Aer 2 Puff INH QAM 05/28/16 Reported Diltiazem Cd (Diltiazem HCl) 120 Mg Capcr 120 Mg PO QAM 05/28/16 Reported Fluocinonide 0.05 % Noemí 1 Appln TOP DAILY 01/10/15 Reported Zocor (Simvastatin) 40 Mg Tab 40 Mg PO QPM 04/07/14 Reported Seroquel (Quetiapine Fumarate) 300 Mg Tab 300 Mg PO QPM 09/02/12 Reported Restoril (Temazepam) 30 Mg Cap 30 Mg PO HS PRN 11/16/08 Reported Lamictal (Lamotrigine) 200 Mg Tab 200 Mg PO BID 11/17/08 Reported Vital Signs Weight (Kilograms): 95.45 Height (Feet): 6 Height (Inches): 2 Physical Exam General Appearance: WD/WN, no apparent distress Respiratory/Chest: Auscultation: breath sounds normal Cardiovascular: Heart Auscultation: RRR Abdomen: Bowel Sounds: normal Inspection & Palpation: soft, non-distended, no tenderness, guarding & rebound Assessment and Plan colon for screening
--- NOTE | 2017-08-01 13:25 | Discharge Instructions ---
Endoscopy Patient Instructions Date / Procedure(s) Performed Aug 01, 2017. Colonoscopy Allergy Information Coded Allergies: Tetracycline (Verified Allergy, Unknown, GROIN TURNED BLACK, 07/29/17) Discharge Date / Findings Aug 01, 2017. polyps Medication Instructions Stopped Medication(s): ASA Restart Stopped Medication(s): Reported Home Medications Medications Dose Route/Sig Max Daily Dose Days Date Category Co Q-10 (Coenzyme Q10 (Ubidecarenone)) 100 Mg Cap 1 Cap PO DAILY 07/29/17 Reported Ventolin Hfa (Albuterol) 200 Puffs/35313 Mcg Aers 2-4 Puffs INH Q6H PRN 07/29/17 Reported Flomax (Tamsulosin Hcl) 0.4 Mg Cap 0.4 Mg PO HS 07/29/17 Reported CeleBREX (Celecoxib) 200 Mg Cap 200 Mg PO DAILY 07/29/17 Reported Aspirin Ec (Aspirin) 81 Mg Tab 81 Mg PO QAM 07/29/17 Reported Tylenol (Acetaminophen) 500 Mg Tab 1-2 Tab PO Q6H PRN 07/29/17 Reported Anoro Ellipta 62.5-25 Mcg/INH (Umeclidinium-Vilanterol) 1 Aer Aer 2 Puff INH QAM 05/28/16 Reported Diltiazem Cd (Diltiazem HCl) 120 Mg Capcr 120 Mg PO QAM 05/28/16 Reported Fluocinonide 0.05 % Noemí 1 Appln TOP DAILY 01/10/15 Reported Zocor (Simvastatin) 40 Mg Tab 40 Mg PO QPM 04/07/14 Reported Seroquel (Quetiapine Fumarate) 300 Mg Tab 300 Mg PO QPM 09/02/12 Reported Restoril (Temazepam) 30 Mg Cap 30 Mg PO HS PRN 11/16/08 Reported Lamictal (Lamotrigine) 200 Mg Tab 200 Mg PO BID 11/17/08 Reported Reported Home Medications Medications Dose Route/Sig Max Daily Dose Days Date Category Co Q-10 (Coenzyme Q10 (Ubidecarenone)) 100 Mg Cap 1 Cap PO DAILY 07/29/17 Reported Ventolin Hfa (Albuterol) 200 Puffs/41145 Mcg Aers 2-4 Puffs INH Q6H PRN 07/29/17 Reported Flomax (Tamsulosin Hcl) 0.4 Mg Cap 0.4 Mg PO HS 07/29/17 Reported CeleBREX (Celecoxib) 200 Mg Cap 200 Mg PO DAILY 07/29/17 Reported Aspirin Ec (Aspirin) 81 Mg Tab 81 Mg PO QAM 07/29/17 Reported Tylenol (Acetaminophen) 500 Mg Tab 1-2 Tab PO Q6H PRN 07/29/17 Reported Anoro Ellipta 62.5-25 Mcg/INH (Umeclidinium-Vilanterol) 1 Aer Aer 2 Puff INH QAM 05/28/16 Reported Diltiazem Cd (Diltiazem HCl) 120 Mg Capcr 120 Mg PO QAM 05/28/16 Reported Fluocinonide 0.05 % Noemí 1 Appln TOP DAILY 01/10/15 Reported Zocor (Simvastatin) 40 Mg Tab 40 Mg PO QPM 04/07/14 Reported Seroquel (Quetiapine Fumarate) 300 Mg Tab 300 Mg PO QPM 09/02/12 Reported Restoril (Temazepam) 30 Mg Cap 30 Mg PO HS PRN 11/16/08 Reported Lamictal (Lamotrigine) 200 Mg Tab 200 Mg PO BID 11/17/08 Reported Provider Instructions Activity Restrictions - No exercising or heavy lifting for 24 hours. - Do not drink alcohol the day of the procedure. - Do not drive a car or operate machinery until the day after the procedure. - Do not make any important decisions or sign important papers in 24 hours after the procedure. Following Day: - Return to full activity which may include returning to work/school. Diet Start your diet with liquids and light foods (jello, soup, juice, toast). Then eat your usual diet if not nauseated. Treatment For Common After Affects For mild abdominal pain, bloating, or excessive gas: - Rest - Eat lightly - Lie on right side Follow-Up Information Follow-up with Codie Biggs as scheduled Anesthesia Information What You Should Know You have had a procedure that required some medicine to reduce anxiety and discomfort. This treatment is called moderate sedation. After receiving the treatment, you may be sleepy, but you will be able to breathe on your own. The effects of the treatment may last for several hours. Follow these instructions along with Activity/Diet recommendations noted above: * Do NOT do anything where dizziness or clumsiness would be dangerous. * Rest quietly at home today, then you can be up and about tomorrow. * Have a responsible person stay with you the rest of today. * You may have had an I.V. today. If so, you may take the dressing off later today. Recommendations Call your doctor if: * Trouble breathing * Continuous vomiting for more than 24 hours * Temperature above 101 degrees * Severe abdominal pain or bloating * Pain not relieved by pain medicine ordered * There is increased drainage or redness from any incision * A large amount of rectal bleeding greater than 2-3 tablespoons. (If you had a polyp/s removed or have hemorrhoids, a small amount of blood - from the rectum is to be expected.) * You have any unanswered questions or concerns. IN THE EVENT OF A SERIOUS EMERGENCY, GO TO THE NEAREST EMERGENCY ROOM Your discharge instructions were prepared by provider Mack Cummins. Patient Instructions Signature Page [place] Patient (or Guardian) Signature/Date: I have read and understand the instructions given to me by my caregivers. Caregiver/RN/Doctor Signature/Date: The above-named patient and/or guardian has received patient instructions on this date. + Original Patient Signature Page (only) stays with chart. Please make copy for patient.
--- NOTE | 2017-08-01 13:41 | GI REPORT ---
Procedure Date: 08/01/2017 1:03 PM Procedure: Colonoscopy Indications: High risk colon cancer surveillance: Personal history of colonic polyps Medicines: Propofol per Anesthesia Complications: No immediate complications. Estimated blood loss: Minimal. Estimated Blood Loss: Estimated blood loss was minimal. Procedure: Pre-Anesthesia Assessment: - Prior to the procedure, a History and Physical was performed, and patient medications and allergies were reviewed. The patient's tolerance of previous anesthesia was also reviewed. The risks and benefits of the procedure and the sedation options and risks were discussed with the patient. All questions were answered, and informed consent was obtained. Prior Anticoagulants: The patient has taken no previous anticoagulant or antiplatelet agents. ASA Grade Assessment: III - A patient with severe systemic disease. After reviewing the risks and benefits, the patient was deemed in satisfactory condition to undergo the procedure. After I obtained informed consent, the scope was passed under direct vision. Throughout the procedure, the patient's blood pressure, pulse, and oxygen saturations were monitored continuously. The scope was introduced through the anus and advanced to the terminal ileum, with identification of the appendiceal orifice and IC valve. The colonoscopy was performed without difficulty. The patient tolerated the procedure well. The quality of the bowel preparation was good. Findings: The perianal and digital rectal examinations were normal. Pertinent negatives include normal sphincter tone, no palpable rectal lesions and no anal lesion or abnormality was detected. A 2 mm polyp was found in the ascending colon. The polyp was sessile. The polyp was removed with a cold biopsy forceps. Resection and retrieval were complete. Estimated blood loss was minimal. Verification of patient identification for the specimen was done by the physician and biomass technician using the patient's name and medical record number. A 4 mm polyp was found in the rectum. The polyp was sessile. The polyp was removed with a cold biopsy forceps. Resection and retrieval were complete. Estimated blood loss was minimal. Verification of patient identification for the specimen was done by the physician and biomass technician using the patient's name and medical record number. The exam was otherwise without abnormality. The terminal ileum appeared normal. Non-bleeding internal hemorrhoids were found during retroflexion. The hemorrhoids were moderate. Impression: - One 2 mm polyp in the ascending colon, removed with a cold biopsy forceps. Resected and retrieved. - One 4 mm polyp in the rectum, removed with a cold biopsy forceps. Resected and retrieved. - The examination was otherwise normal. - The examined portion of the ileum was normal. - Non-bleeding internal hemorrhoids. Recommendation: - Discharge patient to home (ambulatory). - Resume regular diet. - Continue present medications. - Await pathology results. - Repeat colonoscopy for surveillance based on pathology results. - Return to referring physician as previously scheduled. MD Mack Walsh MD 08/01/2017 1:41:25 PM This report has been signed electronically. Note Initiated On: 08/01/2017 1:03 PM I attest to the content of the Intraoperative Record and orders documented therein, exceptions below
[2017-08-01 14:00] VITALS: BP 151/99; PULSE 85; O2SAT 94
--- NOTE | 2017-08-01 14:08 | Anesthesiology Progress Note ---
Anesthesia Post Op Note Date & Time Aug 01, 2017 at 14:07 Vital Signs Pain Intensity: 0 Vital Signs Past 12 Hours Date Time Temp Pulse Resp B/P (MAP) Pulse Ox O2 Delivery O2 Flow Rate FiO2 08/01/17 13:45 79 18 136/84 (101) 94 Room Air 08/01/17 13:30 90 16 121/83 (96) 96 Room Air 08/01/17 12:44 36.4 94 18 137/96 (110) 92 Room Air Notes Mental Status: alert / awake / arousable, participated in evaluation Pt Amnestic to Procedure: Yes Nausea / Vomiting: adequately controlled Pain: adequately controlled Airway Patency, RR, SpO2: stable & adequate BP & HR: stable & adequate Hydration State: stable & adequate Anesthetic Complications: no major complications apparent
== END | disposition home or self-care (01) ==
LOC: C.GI 12:00
PROVIDERS: ATTEND Internal Medicine Gastroenterology
DX: Z12.11 Encounter for screening for malignant neoplasm of colon (principal); D12.2 Benign neoplasm of ascending colon; K62.1 Rectal polyp; K64.8 Other hemorrhoids; I10 Essential (primary) hypertension; J44.9 Chronic obstructive pulmonary disease, unspecified; E78.5 Hyperlipidemia, unspecified; F31.9 Bipolar disorder, unspecified; Z85.820 Personal history of malignant melanoma of skin; Z87.891 Personal history of nicotine dependence; Z88.1 Allergy status to other antibiotic agents; Z79.82 Long term (current) use of aspirin; Z96.651 Presence of right artificial knee joint; Z90.89 Acquired absence of other organs